=== PATIENT | female | born 1955 | race Caucasian/White ===

== ENCOUNTER 2018-03-03 23:34 | Emergency (ER) | payer OTHER ==
[~2018-03-03] VITALS: Ht 154.9 cm; Wt 70.3 kg
--- NOTE | 2018-03-04 01:13 | CT SCAN REPORT ---
EXAMINATION: CT HEAD WITHOUT CONTRAST CLINICAL INFORMATION: Headache status post fall COMPARISON: None. TECHNIQUE: Contiguous axial imaging was performed from the skull base to vertex without intravenous contrast. DLP: 631 mGy-cm. FINDINGS: There is no evidence of acute intracranial hemorrhage or territorial infarction. No abnormal mass effect or midline shift is seen. Farfan to white matter differentiation is well preserved. No extra-axial fluid collections are identified. No hydrocephalus. No significant volume loss. There is no abnormal attenuation within the brain parenchyma. The osseous structures and soft tissues are normal. The mastoid air cells and visualized portions of the paranasal sinuses are well aerated. IMPRESSION: No acute intracranial pathology.
--- NOTE | 2018-03-04 01:14 | RADIOLOGY REPORT ---
EXAMINATION: XR FOREARM, LEFT CLINICAL INFORMATION: Swelling status post fall COMPARISON: None TECHNIQUE: AP and lateral views of the left forearm were obtained. FINDINGS: There is an intra-articular comminuted distal radial fracture. Mild impaction at the fracture site. No significant displacement at the articulation. The carpal rows remain aligned. Alignment at the elbow is maintained. IMPRESSION: Impacted distal radial fracture with intra-articular extension.
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
[2018-03-04] MEDS ORDERED: IBUPROFEN800 M1 PO (01:40)
[2018-03-04 02:13] VITALS: BP 138/72
== END 2018-03-04 02:14 ==
LOC: ERH 23:34
DX: S09.90XA Unspecified injury of head, initial encounter (principal); S50.12XA Contusion of left forearm, initial encounter; W19.XXXA Unspecified fall, initial encounter; Y92.9 Unspecified place or not applicable
CPT/HCPCS: 73090-LT